=== PATIENT | male | born 1985 | race Caucasian/White ===

== ENCOUNTER 2019-09-29 10:50 | Emergency (ER) | payer SELFPAY ==
[~2019-09-29] VITALS: Ht 175.2 cm; Wt 72.7 kg
--- NOTE | 2019-09-29 11:15 | NUR ---
KIRSTY MUKHERJEE TO ROOM TO SEE PATIENT
[2019-09-29 11:20] VITALS: BP 137/100
--- NOTE | 2019-09-29 11:20 | NUR ---
PATIENT WANTS TO LEAVE AMA
--- NOTE | 2019-09-29 11:21 | ED General ---
General Chief Complaint: Abdominal/GI Problems Stated Complaint: ABD PAIN;MIGRAINE Source of Information: Patient Exam Limitations: No Limitations History of Present Illness Date Seen by Provider: Sep 29, 2019 Time Seen by Provider: 11:00 Past [id number]-Akmvgb-Nhgirn Hx Patient Social History Recent Foreign Travel: No Contact w/Someone Who Travel: No Physical Exam Vital Signs Capillary Refill : Height, Weight, BMI Height: '" Weight: lbs. oz. kg; BMI Method: Progress/Results/Core Measures Suspected Sepsis SIRS Temperature: Pulse: Respiratory Rate: Blood Pressure / Mean: Results/Orders Vital Signs/I&O Capillary Refill : Departure Impression Disposition: 07 AGAINST MEDICAL ADVICE KIRSTY MOORE Sep 29, 2019 11:21
== END 2019-09-29 11:20 | disposition left against medical advice (07) ==
LOC: ER 10:53
DX: R10.9 Unspecified abdominal pain (principal); G43.909 Migraine, unspecified, not intractable, without status migrainosus
CPT/HCPCS: 99282